=== PATIENT | female | born 1990 | race Asian ===

== ENCOUNTER 2016-10-10 16:31 | Emergency (ER) | payer MEDICAID ==
[~2016-10-10] VITALS: Ht 157.5 cm; Wt 45.8 kg
[2016-10-10 16:41] VITALS: BP_SYST 113
[2016-10-10 17:37] LABS: BILIRUBIN,URINE 2+ (NEGATIVE); BLOOD, URINE 3+ (NEGATIVE); CLARITY/URINE HAZY (CLEAR); COLOR,URINE YELLOW (YELLOW); GLUCOSE,URINE NEGATIVE (NEGATIVE); KETONES,URINE NEGATIVE (NEGATIVE); LEUKOCYTE ESTERASE ,URINE NEGATIVE (NEGATIVE); NITRITE, URINE NEGATIVE (NEGATIVE); PH,URINE 5.5 (5.0-8.0); PROTEIN URINE 3+ (NEGATIVE); UROBILINOGEN,URINE 0.2 (0.2-1.0)
[2016-10-10 17:38] LABS: HEMATOCRIT 33.9 % (36-48); MEAN CORPUSCULAR HEMOGLOBIN 27 pg (27-31); MEAN CORPUSCULAR HGB CONC 32 % (32-36); MEAN CORPUSCULAR VOLUME 83 fL (79.0-98.0); PLATELET COUNT (AUTO) 193 K/uL (130-430); RED BLOOD CELL COUNT(AUTO) 4.08 MIL/uL (4.2-6.2); RED CELL DISTRIBUTION WIDTH 14.3 % (9.0-15.0); WHITE BLOOD COUNT (AUTO) 6.2 K/uL (4.8-10.8)
[2016-10-10 17:39] LABS: BACTERIA,URINE MODERATE /HPF (None Seen); FINE GRANULAR CASTS,URINE 0-3 /LPF (None Seen); HYALINE CASTS, URINE 0-3 /LPF (None Seen); MUCUS,URINE 1+ /LPF (None Seen)
[2016-10-10 17:47] LABS: CALCIUM 8.8 mg/dL (8.4-11.0); CREATININE 1.65 mg/dL (0.55-1.30); POTASSIUM 4.1 mmol/L (3.5-5.1)
[2016-10-10 17:52] LABS: ALBUMIN 2.3 g/dL (3.4-4.8); TOTAL BILIRUBIN 0.3 mg/dL (0.0-1.0); TOTAL PROTEIN, SERUM 5.8 g/dL (6.4-8.3)
[2016-10-10] MEDS ORDERED: LEVOFLOXACIN 500 MG/D5W 100 ML IV ONE (18:00)
[2016-10-10] MEDS ORDERED: LIDOCAINE 2%, 20 ML MDV INJ ONE (18:00)
[2016-10-10 18:07] LABS: ATYPICAL LYMPHOCYTES % 10 % (0-0); BAND % (MANUAL) 20 % (0-6); BASOPHILS % (MANUAL) 0 % (0-2); EOSINOPHILS % (MANUAL) 0 % (0-7); LYMPHOCYTES % (MANUAL) 7 % (20-46); MONOCYTES % (MANUAL) 4 % (0-11)
[2016-10-10 18:31] LABS: FREE T4 (FREE THYROXINE) 0.6 ng/dL (0.6-1.6); THYROID STIMULATING HORMONE 2.67 uIu/mL (0.34-4.82)
[2016-10-10] MEDS ORDERED: CALC-226 PO (19:28)
[2016-10-10] MEDS ORDERED: ERGO500043 PO (19:34)
[2016-10-10] MEDS ORDERED: COR25 PO (19:34)
[2016-10-10] MEDS ORDERED: ALEN70TA3 PO (19:34)
[2016-10-10] MEDS ORDERED: CALC-1094 PO (19:34)
[2016-10-10] MEDS ORDERED: FERR-57 PO (19:34)
[2016-10-10] MEDS ORDERED: FOLI-43 PO (19:35)
[2016-10-10] MEDS ORDERED: MYCO500T PO (19:40)
[2016-10-10] MEDS ORDERED: PRED5TAB PO (19:40)
[2016-10-10] MEDS ORDERED: POSA100T PO (19:40)
[2016-10-10] MEDS ORDERED: PRED1TAB PO (19:40)
[2016-10-10] MEDS ORDERED: LEVO25TA7 PO (19:40)
[2016-10-10] MEDS ORDERED: PLA200 PO (19:40)
[2016-10-10] MEDS ORDERED: cefTRIAXone 1 GM IVPB PREMIX 50 ML IV SCH (21:00)
[2016-10-11] MEDS ORDERED: cefTRIAXone 1 GM VIAL IV SCH (09:00)
== END 2016-10-10 19:55 | disposition left against medical advice (07) ==
LOC: SED 16:31 → SMU 19:24 → UNDOADMIN 19:24 → SED 19:55
DX: N10 Acute pyelonephritis (principal); D72.825 Bandemia; M32.9 Systemic lupus erythematosus, unspecified; I42.9 Cardiomyopathy, unspecified; Z88.2 Allergy status to sulfonamides; Z79.899 Other long term (current) drug therapy; Z98.890 Other specified postprocedural states
CPT/HCPCS: 36415; 71010; 80053; 81000; 81025; 83605; 84439; 84443; 85007; 85027; 87040; 87086; 96365; 99285; J1956; J0696; J7050

== ENCOUNTER 2018-04-16 15:18 | Inpatient (IN) | payer MEDICAID ==
[~2018-04-16] VITALS: Ht 157.5 cm; Wt 44.9 kg
[~2018-04-16 15:18] MED LIST: ALEN70TA3 PO; CALC-1094 PO; CALC-823 PO; COR25 PO; ERGO500020 PO; FERR-57 PO; FOLI-43 PO; HYDR200T80 PO; LEVO25TA7 PO; MYCO500T PO; POSA100T PO; PRED1TAB PO; PRED5TAB PO
[2018-04-16 15:27] VITALS: BP_SYST 131
[2018-04-16] MEDS ORDERED: ALBUTEROL SULFATE 0.083% 2.5 MG/3 ML VIAL.NEB IH ONE (15:45)
[2018-04-16] MEDS ORDERED: IPRATROPIUM BROM 0.5 MG/2.5 ML VIAL.NEB (ATROVENT) IH ONE (15:45)
[2018-04-16] MEDS ORDERED: VANCOMYCIN HCL 1,000 MG in D5W 250 ML IV ONE (15:45)
[2018-04-16] MEDS ORDERED: NS 1000 ML IV.SOLN IV ONE (15:45)
[2018-04-16] MEDS ORDERED: PIPERACILLIN/TAZO 3.38 GM in D5W 50 ML IV ONE (15:45)
[2018-04-16] MEDS ORDERED: PIPERACILLIN/TAZOBACTAM 3.375 GM/VIAL (ZOSYN) IV ONE (16:26)
[2018-04-16] MEDS ORDERED: VANCOMYCIN HCL 1000 MG/VIAL IV ONE (16:27)
[2018-04-16 16:39] LABS: CALCIUM 7.4 mg/dL (8.4-11.0); CREATININE 1.94 mg/dL (0.55-1.30)
[2018-04-16 16:42] LABS: INR 0.9 (0.8-1.2); PROTHROMBIN TIME 9.4 SECS (9.5-12.5)
[2018-04-16 16:45] LABS: HEMATOCRIT 26.9 % (36-48); HEMOGLOBIN 8.4 g/dL (12.0-16.0); MEAN CORPUSCULAR HEMOGLOBIN 27 pg (27-31); MEAN CORPUSCULAR HGB CONC 31 % (32-36); MEAN CORPUSCULAR VOLUME 86 fL (79.0-98.0); PLATELET COUNT (AUTO) 198 K/uL (130-430); RED BLOOD CELL COUNT(AUTO) 3.14 MIL/uL (4.2-6.2); RED CELL DISTRIBUTION WIDTH 13.8 % (9.0-15.0); WHITE BLOOD COUNT (AUTO) 4.8 K/uL (4.8-10.8)
[2018-04-16 16:52] LABS: ALBUMIN 2.1 g/dL (3.4-4.8); TOTAL BILIRUBIN 0.2 mg/dL (0.0-1.0)
[2018-04-16 17:32] LABS: BAND % (MANUAL) 23 % (0-6); EOSINOPHILS % (MANUAL) 1 % (0-7); LYMPHOCYTES % (MANUAL) 14 % (20-46); MONOCYTES % (MANUAL) 8 % (0-11)
[2018-04-16 17:33] LABS: BASOPHILS % (MANUAL) 0 % (0-2)
[2018-04-16] MEDS ORDERED: HYDROCORTISONE SOD SUCC 100 MG/2 ML VIAL IVP ONE (18:30)
[2018-04-16 19:03] LABS: BILIRUBIN,URINE NEGATIVE (NEGATIVE); BLOOD, URINE 2+ (NEGATIVE); CLARITY/URINE CLEAR (CLEAR); COLOR,URINE YELLOW (YELLOW); GLUCOSE,URINE NEGATIVE (NEGATIVE); KETONES,URINE NEGATIVE (NEGATIVE); LEUKOCYTE ESTERASE ,URINE NEGATIVE (NEGATIVE); NITRITE, URINE NEGATIVE (NEGATIVE); PROTEIN URINE 3+ (NEGATIVE); UROBILINOGEN,URINE 0.2 (0.2-1.0)
[2018-04-16 19:07] LABS: BACTERIA,URINE FEW /HPF (None Seen); WBC,URINE 0-3 /HPF (0-3)
[2018-04-16 19:18] VITALS: BP_SYST 115
[2018-04-16 20:18] VITALS: BP_SYST 126
[2018-04-16 20:20] VITALS: BP_SYST 115
[2018-04-16] MEDS ORDERED: FAMOTIDINE 20 MG TABLET PO SCH (21:00)
[2018-04-16 21:13] VITALS: BP_SYST 126
[2018-04-16] MEDS ORDERED: PIPERACILLIN/TAZOBACTAM 2.25 GM VIAL IV ONE (22:40)
[2018-04-16] MEDS: PIPERACILLIN/TAZO 2.25G/DEX-IS 50 ML IV SCH (23:08)
[2018-04-16] MEDS: IPRATROPIUM/ALBUTEROL SULFATE 3 ML AMPUL.NEB (DUONEB) INH SCH (23:20)
[2018-04-16] MEDS: NACL 0.9% 1,000 ML IV SCH (23:56)
[2018-04-17 00:54] VITALS: BP_SYST 133
[2018-04-17] MEDS: PIPERACILLIN/TAZO 2.25G/DEX-IS 50 ML IV SCH ×3 (06:16→20:43)
[2018-04-17] MEDS: LEVOTHYROXINE SODIUM 0.025 MG TABLET PO SCH (06:16)
[2018-04-17 07:14] LABS: ALBUMIN 1.6 g/dL (3.4-4.8); CREATININE 1.53 mg/dL (0.55-1.30); POTASSIUM 4.2 mmol/L (3.5-5.1); THYROID STIMULATING HORMONE 0.78 uIu/mL (0.34-4.82); TOTAL BILIRUBIN 0.2 mg/dL (0.0-1.0)
[2018-04-17 07:21] LABS: CALCIUM 6.7 mg/dL (8.4-11.0)
[2018-04-17] MEDS: IPRATROPIUM/ALBUTEROL SULFATE 3 ML AMPUL.NEB (DUONEB) INH SCH ×2 (07:35→14:00)
[2018-04-17 08:00] VITALS: BP_SYST 128
[2018-04-17 08:13] LABS: MEAN CORPUSCULAR HEMOGLOBIN 27 pg (27-31); MEAN CORPUSCULAR HGB CONC 32 % (32-36); MEAN CORPUSCULAR VOLUME 87 fL (79.0-98.0); PLATELET COUNT (AUTO) 165 K/uL (130-430); RED BLOOD CELL COUNT(AUTO) 2.45 MIL/uL (4.2-6.2); RED CELL DISTRIBUTION WIDTH 14.9 % (9.0-15.0); WHITE BLOOD COUNT (AUTO) 3.7 K/uL (4.8-10.8)
[2018-04-17 08:17] LABS: HEMATOCRIT 21.3 % (36-48); HEMOGLOBIN 6.7 g/dL (12.0-16.0)
[2018-04-17] MEDS: NACL 0.9% 1,000 ML IV SCH (08:32)
[2018-04-17] MEDS: FAMOTIDINE 20 MG TABLET PO SCH (08:56)
[2018-04-17] MEDS: FOLIC ACID 1 MG TABLET PO SCH (08:56)
[2018-04-17] MEDS: CARVEDILOL 25 MG TABLET (COREG) PO SCH ×2 (08:59→20:51)
[2018-04-17] MEDS ORDERED: CARVEDILOL 25 MG TABLET (COREG) PO SCH (09:00)
[2018-04-17] MEDS: HYDROCORTISONE SOD SUCC 100 MG/2 ML VIAL IVP SCH ×2 (09:00→20:42)
[2018-04-17 09:44] LABS: BAND % (MANUAL) 10 % (0-6)
[2018-04-17 09:46] LABS: TOTAL IRON BIND. CAPACITY 158 ug/dL (250-450)
[2018-04-17 09:49] LABS: BASOPHILS % (MANUAL) 0 % (0-2); EOSINOPHILS % (MANUAL) 0 % (0-7); LYMPHOCYTES % (MANUAL) 6 % (20-46); MONOCYTES % (MANUAL) 4 % (0-11)
[2018-04-17 11:55] VITALS: BP_SYST 128
[2018-04-17] MEDS ORDERED: DIPHENHYDRAMINE HCL 25 MG CAPSULE PO ONE (12:45)
[2018-04-17] MEDS: ACETAMINOPHEN 325 MG TABLET PO PRN (12:47)
[2018-04-17] MEDS ORDERED: OSELTAMIVIR PHOSPHATE 6 MG/1 ML, 60 ML SUSP PO ONE (13:00)
[2018-04-17] MEDS ORDERED: AZITHROMYCIN 500 MG in NS 250 ML IV SCH (13:00)
[2018-04-17] MEDS ORDERED: VANCOMYCIN HCL 750 MG/NS 250 ML IV SCH (15:00)
[2018-04-17 16:57] VITALS: BP_SYST 130
[2018-04-17 17:43] LABS: HEMATOCRIT 25.8 % (36-48); HEMOGLOBIN 8.5 g/dL (12.0-16.0); MEAN CORPUSCULAR HEMOGLOBIN 29 pg (27-31); MEAN CORPUSCULAR HGB CONC 33 % (32-36); MEAN CORPUSCULAR VOLUME 87 fL (79.0-98.0); PLATELET COUNT (AUTO) 154 K/uL (130-430); RED BLOOD CELL COUNT(AUTO) 2.99 MIL/uL (4.2-6.2); RED CELL DISTRIBUTION WIDTH 14.6 % (9.0-15.0)
[2018-04-17 17:58] LABS: ATYPICAL LYMPHOCYTES % 0 % (0-0); BAND % (MANUAL) 16 % (0-6); BASOPHILS % (MANUAL) 0 % (0-2); EOSINOPHILS % (MANUAL) 0 % (0-7); LYMPHOCYTES % (MANUAL) 7 % (20-46); MONOCYTES % (MANUAL) 3 % (0-11)
[2018-04-17 20:35] VITALS: BP_SYST 154
[2018-04-17 23:00] VITALS: BP_SYST 143
[2018-04-18] MEDS: IPRATROPIUM/ALBUTEROL SULFATE 3 ML AMPUL.NEB (DUONEB) INH SCH ×3 (00:03→22:00)
[2018-04-18] MEDS: PIPERACILLIN/TAZO 2.25G/DEX-IS 50 ML IV SCH ×2 (02:36→08:33)
[2018-04-18] MEDS: LEVOTHYROXINE SODIUM 0.025 MG TABLET PO SCH (06:05)
[2018-04-18 07:43] LABS: ALBUMIN 1.8 g/dL (3.4-4.8); CALCIUM 7.5 mg/dL (8.4-11.0); CREATININE 1.6 mg/dL (0.55-1.30); POTASSIUM 3.7 mmol/L (3.5-5.1); TOTAL BILIRUBIN 0.2 mg/dL (0.0-1.0)
[2018-04-18 08:16] VITALS: BP_SYST 148
[2018-04-18] MEDS: OSELTAMIVIR PHOSPHATE 6 MG/1 ML, 60 ML SUSP PO SCH (08:30)
[2018-04-18] MEDS: HYDROCORTISONE SOD SUCC 100 MG/2 ML VIAL IVP SCH ×2 (08:30→21:59)
[2018-04-18] MEDS: FAMOTIDINE 20 MG TABLET PO SCH (08:31)
[2018-04-18] MEDS: FOLIC ACID 1 MG TABLET PO SCH (08:32)
[2018-04-18] MEDS: CARVEDILOL 25 MG TABLET (COREG) PO SCH ×2 (08:32→22:01)
[2018-04-18 08:36] LABS: HEMATOCRIT 29.7 % (36-48); HEMOGLOBIN 9.6 g/dL (12.0-16.0); LYMPHOCYTES % (AUTO) 13.8 % (20.5-51.5); MEAN CORPUSCULAR HEMOGLOBIN 28 pg (27-31); MEAN CORPUSCULAR HGB CONC 32 % (32-36); MEAN CORPUSCULAR VOLUME 87 fL (79.0-98.0); PLATELET COUNT (AUTO) 178 K/uL (130-430); RED BLOOD CELL COUNT(AUTO) 3.41 MIL/uL (4.2-6.2); RED CELL DISTRIBUTION WIDTH 14.6 % (9.0-15.0); WHITE BLOOD COUNT (AUTO) 4.3 K/uL (4.8-10.8)
[2018-04-18 08:37] LABS: BASOPHILS % (AUTO) 0.6 % (0.0-2.0); LYMPHOCYTES # (AUTO) 0.6 K/uL (1.0-5.5); MONOCYTES # (AUTO) 0.3 K/uL (0.0-1.0); MONOCYTES % (AUTO) 6.6 % (1.7-9.3); NEUTROPHILS # (AUTO) 3.4 K/uL (1.8-7.7)
[2018-04-18] MEDS: cefTRIAXone 1 GM in D5W 50 ML IV SCH (12:14)
[2018-04-18 12:31] VITALS: BP_SYST 134
[2018-04-18] MEDS ORDERED: ONDANSETRON HCL 4 MG/2 ML VIAL IVP PRN (14:30)
[2018-04-18] MEDS ORDERED: CARVEDILOL 12.5 MG TABLET (COREG) PO ONE (14:30)
[2018-04-18 16:00] VITALS: BP_SYST 142
[2018-04-18 20:00] VITALS: BP_SYST 144
[2018-04-18] MEDS: FERROUS SULFATE 325 MG TABLET.DR PO SCH (21:58)
[2018-04-19] MEDS ORDERED: guaiFENesin 200 MG/CODEINE 20 MG/ 10 ML UDC PO PRN (02:30)
[2018-04-19] MEDS: ACETAMINOPHEN 325 MG TABLET PO PRN (02:39)
[2018-04-19] MEDS: LEVOTHYROXINE SODIUM 0.025 MG TABLET PO SCH (06:34)
[2018-04-19] MEDS: IPRATROPIUM/ALBUTEROL SULFATE 3 ML AMPUL.NEB (DUONEB) INH SCH ×2 (07:19→15:38)
[2018-04-19 08:05] VITALS: BP_SYST 151
[2018-04-19] MEDS ORDERED: cloNIDine HCL 0.1 MG TABLET PO PRN (08:30)
[2018-04-19] MEDS: FERROUS SULFATE 325 MG TABLET.DR PO SCH (09:04)
[2018-04-19] MEDS: FOLIC ACID 1 MG TABLET PO SCH (09:04)
[2018-04-19] MEDS: FAMOTIDINE 20 MG TABLET PO SCH (09:04)
[2018-04-19] MEDS: cefTRIAXone 1 GM in D5W 50 ML IV SCH (09:04)
[2018-04-19] MEDS: HYDROCORTISONE SOD SUCC 100 MG/2 ML VIAL IVP SCH (09:04)
[2018-04-19] MEDS: OSELTAMIVIR PHOSPHATE 6 MG/1 ML, 60 ML SUSP PO SCH (09:05)
[2018-04-19] MEDS: CARVEDILOL 25 MG TABLET (COREG) PO SCH (09:05)
[2018-04-19 10:37] VITALS: BP_SYST 151
[2018-04-19 12:04] VITALS: BP_SYST 138
[2018-04-19] MEDS ORDERED: MYCOPHENOLATE MOFETIL 250 MG CAPSULE PO ONE (12:30)
[2018-04-19 16:23] VITALS: BP_SYST 136
[2018-04-19 16:37] VITALS: BP_SYST 136
[2018-04-19] MEDS ORDERED: MYCOPHENOLATE MOFETIL 250 MG CAPSULE PO SCH (21:00)
[2018-04-20 04:07] LABS: FOLATE (FOLIC ACID) 8.2 ng/mL (>3.0)
== END 2018-04-19 17:16 | disposition home or self-care (01) | DRG 720 ==
LOC: SED 15:18 → STU 18:22
PROVIDERS: ADMIT Internal Medicine; ATTEND Internal Medicine
PROC: 30233N1 Transfusion of Nonautologous Red Blood Cells into Peripheral Vein, Percutaneous Approach (ICD-10-PCS; principal; 2018-04-17)
DX: A41.9 Sepsis, unspecified organism (principal); N17.0 Acute kidney failure with tubular necrosis; E43 Unspecified severe protein-calorie malnutrition; J12.9 Viral pneumonia, unspecified; J18.9 Pneumonia, unspecified organism; I50.9 Heart failure, unspecified; M32.14 Glomerular disease in systemic lupus erythematosus; M32.9 Systemic lupus erythematosus, unspecified; M81.0 Age-related osteoporosis without current pathological fracture; N18.9 Chronic kidney disease, unspecified; D64.9 Anemia, unspecified; J20.9 Acute bronchitis, unspecified; N92.0 Excessive and frequent menstruation with regular cycle; E03.9 Hypothyroidism, unspecified; Z68.1 Body mass index [BMI] 19.9 or less, adult; Z87.01 Personal history of pneumonia (recurrent); Z88.2 Allergy status to sulfonamides
CPT/HCPCS: 36415; 71046-TC; 80048; 80053; 81000-TC; 82272; 82607; 82746; 83540-TC; 83550-TC; 83605; 83735-TC; 83880; 84443-TC; 84484; 85007; 85025; 85027; 85610-TC; 85730-TC; 86710; 86886; 86900; 86901; 86920; 87040-TC; 87070-TC; 87205-TC; 93005; 94640; 94760; 96365; 96366; 96368; 99285; G0378; G9035; J0456; J0696; J1720; J2543; J3370; J7030; J7040; J7050; J7060; J7517; J7613; J7620; P9021; Q0163

== ENCOUNTER 2020-09-19 18:01 | Emergency (ER) | payer MEDICAID ==
[~2020-09-19] VITALS: Ht 157.5 cm; Wt 39.5 kg
[~2020-09-19 18:01] MED LIST changes: -CALC-1094 PO; +CALC-1312 PO
[2020-09-19 18:05] VITALS: BP_SYST 146
[2020-09-19 18:46] LABS: HEMATOCRIT 25.9 % (36-48); HEMOGLOBIN 8.5 g/dL (12.0-16.0); MEAN CORPUSCULAR HEMOGLOBIN 31 pg (27-31); MEAN CORPUSCULAR HGB CONC 33 % (32-36); MEAN CORPUSCULAR VOLUME 93 fL (79.0-98.0); PLATELET COUNT (AUTO) 137 K/uL (130-430); RED BLOOD CELL COUNT(AUTO) 2.78 MIL/uL (4.2-6.2); RED CELL DISTRIBUTION WIDTH 18.1 % (9.0-15.0)
[2020-09-19 18:49] LABS: WHITE BLOOD COUNT (AUTO) 2.1 K/uL (4.8-10.8)
[2020-09-19 18:55] LABS: POTASSIUM 4.6 mmol/L (3.5-5.1)
[2020-09-19 18:58] LABS: INR 1.8 (0.8-1.2); PROTHROMBIN TIME 18.5 SECS (9.5-12.5)
[2020-09-19 19:01] LABS: CREATININE 15.05 mg/dL (0.55-1.30)
[2020-09-19 19:04] LABS: ALBUMIN 2.6 g/dL (3.4-4.8); TOTAL BILIRUBIN 0.4 mg/dL (0.0-1.0)
[2020-09-19 19:13] LABS: BAND % (MANUAL) 0 % (0-6); BASOPHILS % (MANUAL) 0 % (0-2); EOSINOPHILS % (MANUAL) 0 % (0-7); LYMPHOCYTES % (MANUAL) 13 % (20-46); MONOCYTES % (MANUAL) 11 % (0-11)
[2020-09-19 19:42] LABS: CKMB RELATIVE INDEX 0.4 (0.0-2.9); CREATINE KINASE MB 1.4 ng/mL (0-3.6)
[2020-09-19 21:48] LABS: BILIRUBIN,URINE NEGATIVE (NEGATIVE); BLOOD, URINE 3+ (NEGATIVE); CLARITY/URINE CLOUDY (CLEAR); COLOR,URINE RED (YELLOW); GLUCOSE,URINE NEGATIVE (NEGATIVE); KETONES,URINE NEGATIVE (NEGATIVE); LEUKOCYTE ESTERASE ,URINE NEGATIVE (NEGATIVE); NITRITE, URINE NEGATIVE (NEGATIVE); PH,URINE 7.5 (5.0-8.0); PROTEIN URINE 2+ (NEGATIVE); UROBILINOGEN,URINE 0.2 (0.2-1.0)
[2020-09-19 21:49] LABS: BACTERIA,URINE FEW /HPF (None Seen); MUCUS,URINE None Seen /LPF (None Seen); RBC,URINE >100 /HPF (0-3); WBC,URINE 0-3 /HPF (0-3)
== END 2020-09-19 23:40 | disposition left against medical advice (07) ==
LOC: SED 18:01
DX: D64.9 Anemia, unspecified (principal); R53.1 Weakness; I50.9 Heart failure, unspecified; Z88.2 Allergy status to sulfonamides; Z79.899 Other long term (current) drug therapy; Z20.822 Contact with and (suspected) exposure to COVID-19
CPT/HCPCS: 36415; 71045; 80053; 81000; 82550; 82553; 83880; 84484; 84703; 85007; 85027; 85610-TC; 93005; 99291

== ENCOUNTER 2020-11-05 17:26 | Emergency (ER) | payer MEDICAID, SELFPAY ==
[~2020-11-05] VITALS: Ht 157.5 cm; Wt 41.7 kg
[2020-11-05 17:35] VITALS: BP_SYST 138
[2020-11-05] MEDS ORDERED: SODIUM POLYSTYRENE SULFONATE 15 GM/60 ML UDBTL PO ONE (18:00)
[2020-11-05] MEDS ORDERED: DEXTROSE 50% JECT 50 ML DISP.SYRIN IVP ONE (18:00)
[2020-11-05] MEDS ORDERED: SODIUM BICARBONATE 8.4% VIAL 50 MEQ/50 ML VIAL INJ ONE (18:00)
[2020-11-05] MEDS ORDERED: INSULIN REGULAR, HUMAN 10 UNITS/0.1 ML INJ IVP ONE (18:00)
[2020-11-05 18:44] LABS: HEMATOCRIT 30.7 % (36-48); HEMOGLOBIN 9.7 g/dL (12.0-16.0); MEAN CORPUSCULAR HEMOGLOBIN 30 pg (27-31); MEAN CORPUSCULAR HGB CONC 31 % (32-36); MEAN CORPUSCULAR VOLUME 96 fL (79.0-98.0); PLATELET COUNT (AUTO) 95 K/uL (130-430); RED BLOOD CELL COUNT(AUTO) 3.19 MIL/uL (4.2-6.2); RED CELL DISTRIBUTION WIDTH 17.9 % (9.0-15.0); WHITE BLOOD COUNT (AUTO) 2.2 K/uL (4.8-10.8)
[2020-11-05 18:48] LABS: POTASSIUM 3.6 mmol/L (3.5-5.1)
[2020-11-05 18:55] LABS: CREATININE 12.33 mg/dL (0.55-1.30)
[2020-11-05 18:56] LABS: ALBUMIN 2.2 g/dL (3.4-4.8); TOTAL BILIRUBIN 0.2 mg/dL (0.0-1.0)
[2020-11-05 19:00] VITALS: BP_SYST 132
[2020-11-05 19:17] LABS: BAND % (MANUAL) 0 % (0-6); BASOPHILS % (MANUAL) 0 % (0-2); EOSINOPHILS % (MANUAL) 0 % (0-7); LYMPHOCYTES % (MANUAL) 12 % (20-46); MONOCYTES % (MANUAL) 12 % (0-11)
== END 2020-11-05 19:00 | disposition home or self-care (01) ==
LOC: SED 17:26
DX: E87.5 Hyperkalemia (principal); N18.6 End stage renal disease; Z88.2 Allergy status to sulfonamides; Z79.899 Other long term (current) drug therapy
CPT/HCPCS: 36415; 80053; 85007; 85027; 93005; 99284

== ENCOUNTER 2023-07-26 06:47 | Inpatient (IN) | payer MEDICAID ==
[~2023-07-26] VITALS: Ht 152.4 cm; Wt 48.6 kg
[~2023-07-26 06:47] MED LIST changes: -ALEN70TA3 PO; +ALEN70TA84 PO
[2023-07-26 06:58] VITALS: BP_SYST 115; PULSE 137; RESP 26; TEMP 98.9; O2SAT 96
[2023-07-26 07:42] LABS: BASOPHILS # (AUTO) 0.1 K/uL (0.0-0.2); BASOPHILS % (AUTO) 0.5 % (0.0-2.0); LYMPHOCYTES % (AUTO) 7.9 % (20.5-51.5); MEAN CORPUSCULAR HEMOGLOBIN 28 pg (27-31); MEAN CORPUSCULAR HGB CONC 35 % (32-36); MEAN CORPUSCULAR VOLUME 82 fL (79.0-98.0); MONOCYTES # (AUTO) 0.5 K/uL (0.0-1.0); NEUTROPHILS # (AUTO) 10.9 K/uL (1.8-7.7); NEUTROPHILS % (AUTO) 87.6 % (40.0-70.0); PLATELET COUNT (AUTO) 241 K/uL (130-430); RED CELL DISTRIBUTION WIDTH 18.7 % (9.0-15.0); WHITE BLOOD COUNT (AUTO) 12.4 K/uL (4.8-10.8)
[2023-07-26 07:44] LABS: ERYTHROCYTE SEDIMENTATION RATE 25 MM/HR (0-20)
[2023-07-26 07:45] LABS: HEMATOCRIT 15.6 % (36-48); HEMOGLOBIN 5.4 g/dL (12.0-16.0)
[2023-07-26 07:59] LABS: SERUM HCG (QUALITATIVE) NEGATIVE (NEGATIVE)
[2023-07-26] MEDS: fentaNYL CITRATE/PF 100 MCG/2 ML AMP IVP ONE (08:04)
[2023-07-26] MEDS: ONDANSETRON HCL 4 MG/2 ML VIAL IVP ONE (08:04)
[2023-07-26 08:08] LABS: COVID19 ANTIGEN SOFIA FIA NEGATIVE (NEGATIVE)
[2023-07-26 08:10] LABS: INFLUENZA TYPE A Negative (NEGATIVE); INFLUENZA TYPE B NEGATIVE (NEGATIVE)
[2023-07-26 08:18] LABS: ALANINE AMINOTRANSFERASE 27 U/L (12-78); ALBUMIN 1.9 g/dL (3.4-4.8); ANION GAP 17 (5-15); ASPARTATE AMINOTRANSFERASE 37 U/L (10-37); BILIRUBIN,DIRECT 0.1 mg/dL (0.0-0.3); CALCIUM 8.1 mg/dL (8.4-11.0); CARBON DIOXIDE 28 mmol/L (23-29); CHLORIDE 89 mmol/L (98-107); GFR AFRICAN AMERICAN 3 mL/min (>90); GLUCOSE 95 mg/dL (74-106); LIPASE 339 U/L (16-77); PHOSPHORUS 6.5 mg/dL (2.7-4.5); POTASSIUM 4.2 mmol/L (3.5-5.1); SODIUM SERUM 134 mmol/L (136-145); TOTAL BILIRUBIN 0.4 mg/dL (0.0-1.0); TOTAL PROTEIN, SERUM 6.6 g/dL (6.4-8.3); UREA NITROGEN, BLOOD 78 mg/dL (8-21)
[2023-07-26 08:20] LABS: GFR NON AFRICAN-AMERICAN 2 mL/min (>90)
[2023-07-26 08:21] LABS: CREATININE 19.71 mg/dL (0.55-1.30)
[2023-07-26] MEDS: VANCOMYCIN HCL 500 MG in NS 100 ML IV ONE (08:30)
[2023-07-26] MEDS: LACOSAMIDE 100 MG TABLET PO ONE (08:45)
[2023-07-26] MEDS: NACL 0.9% 1,000 ML IV ONE (08:59)
[2023-07-26] MEDS ORDERED: PIPERACILLIN/TAZOBACTAM 2.25 GM VIAL IV ONE ×3 (09:05→14:33)
[2023-07-26] MEDS: ACETAMINOPHEN 500 MG TABLET PO ONE (09:17)
[2023-07-26] MEDS: PIPERACILLIN/TAZOBACTAM 2.25 GM in NS 50 ML IV ONE (09:17)
[2023-07-26] MEDS ORDERED: ZOLPIDEM TARTRATE 5 MG TABLET PO PRN (09:45)
[2023-07-26] MEDS ORDERED: LORazepam 2 MG/ML VIAL IVP PRN (09:45)
[2023-07-26] MEDS ORDERED: DOCUSATE SODIUM 100 MG CAPSULE PO PRN (09:45)
[2023-07-26] MEDS ORDERED: POTASSIUM CHLORIDE 20 MEQ TABLET.ER PO PRN (09:45)
[2023-07-26] MEDS ORDERED: MAGNESIUM SULFATE 50 ML IV PRN (09:45)
[2023-07-26] MEDS ORDERED: MUPIROCIN 2% TOPICAL OINTMENT 22 GM NS PRN (09:45)
[2023-07-26] MEDS ORDERED: ALENDRONATE SODIUM 70 MG TABLET (FOSAMAX) PO SCH (09:45)
[2023-07-26] MEDS ORDERED: ACETAMINOPHEN 325 MG TABLET PO PRN ×3 (09:45→11:30)
[2023-07-26] MEDS ORDERED: VANCOMYCIN HCL 1000 MG/VIAL IV ONE (09:59)
[2023-07-26] MEDS: NACL 0.9% 1,000 ML IV SCH (10:00)
[2023-07-26 10:10] LABS: TOTAL IRON BIND. CAPACITY 218 ug/dL (250-450)
[2023-07-26] MEDS: MORPHINE 2 MG/ML INJ. SYRINGE IVP PRN (11:12)
[2023-07-26] MEDS ORDERED: LORazepam 2 MG/ML VIAL IM PRN (11:15)
[2023-07-26] MEDS: PIPERACILLIN/TAZOBACTAM 2.25 GM in D5W 50 ML IV SCH (14:35)
[2023-07-26] MEDS ORDERED: SEVE800T8 PO (15:09)
[2023-07-26] MEDS ORDERED: LACO100T2 PO (15:09)
[2023-07-26] MEDS ORDERED: ACETAMINOPHEN 500 MG TABLET PO PRN ×2 (16:15→16:30)
[2023-07-26] MEDS ORDERED: SEVELAMER CARBONATE 800 MG TABLET PO SCH (18:00)
[2023-07-26] MEDS: FUROSEMIDE 40 MG/4 ML VIAL IVP ONE (19:00)
[2023-07-26] MEDS ORDERED: FERROUS SULFATE 325 MG TABLET.DR PO SCH (21:00)
[2023-07-26] MEDS ORDERED: LACOSAMIDE 100 MG TABLET PO SCH (21:00)
[2023-07-26] MEDS ORDERED: CARVEDILOL 25 MG TABLET (COREG) PO SCH (21:00)
[2023-07-26] MEDS ORDERED: mycophenolate mofetiL 250 MG CAPSULE PO SCH (21:00)
[2023-07-26] MEDS: LACOSAMIDE 100 MG TABLET PO SCH (21:17)
[2023-07-27] MEDS ORDERED: MORPHINE 2 MG/ML INJ. SYRINGE ONE ×2 (03:04→08:35)
[2023-07-27] MEDS ORDERED: POSACONAZOLE 300 MG PO SCH (07:00)
[2023-07-27 07:39] LABS: BASOPHILS % (AUTO) 0.5 % (0.0-2.0); HEMATOCRIT 25.7 % (36-48); LYMPHOCYTES # (AUTO) 0.3 K/uL (1.0-5.5); LYMPHOCYTES % (AUTO) 7.9 % (20.5-51.5); MEAN CORPUSCULAR HEMOGLOBIN 30 pg (27-31); MEAN CORPUSCULAR HGB CONC 35 % (32-36); MEAN CORPUSCULAR VOLUME 87 fL (79.0-98.0); MONOCYTES # (AUTO) 0.3 K/uL (0.0-1.0); MONOCYTES % (AUTO) 8.9 % (1.7-9.3); NEUTROPHILS # (AUTO) 3.2 K/uL (1.8-7.7); NEUTROPHILS % (AUTO) 82.7 % (40.0-70.0); PLATELET COUNT (AUTO) 127 K/uL (130-430); RED BLOOD CELL COUNT(AUTO) 2.97 MIL/uL (4.2-6.2); RED CELL DISTRIBUTION WIDTH 15.9 % (9.0-15.0); WHITE BLOOD COUNT (AUTO) 3.8 K/uL (4.8-10.8)
[2023-07-27 08:01] LABS: CALCIUM 7.6 mg/dL (8.4-11.0); POTASSIUM 4.3 mmol/L (3.5-5.1)
[2023-07-27 08:02] LABS: CREATININE 17.03 mg/dL (0.55-1.30)
[2023-07-27] MEDS ORDERED: predniSONE 1 MG TABLET PO SCH (09:00)
[2023-07-27] MEDS ORDERED: CALCIUM CARBONATE/VITAMIN D3 1 TAB TABLET PO SCH (09:00)
[2023-07-27] MEDS ORDERED: HYDROXYCHLOROQUINE SULFATE 200 MG TABLET PO SCH (09:00)
[2023-07-27] MEDS ORDERED: FOLIC ACID 1 MG TABLET PO SCH (09:00)
[2023-07-27 09:27] LABS: BILIRUBIN,URINE NEGATIVE (NEGATIVE); BLOOD, URINE 3+ (NEGATIVE); CLARITY/URINE CLOUDY (CLEAR); COLOR,URINE RED (YELLOW); GLUCOSE,URINE NEGATIVE (NEGATIVE); KETONES,URINE NEGATIVE (NEGATIVE); LEUKOCYTE ESTERASE ,URINE NEGATIVE (NEGATIVE); NITRITE, URINE POSITIVE (NEGATIVE); PROTEIN URINE 3+ (NEGATIVE); UROBILINOGEN,URINE 0.2 (0.2-1.0)
[2023-07-27 09:39] LABS: BACTERIA,URINE None Seen /HPF (None Seen); RBC,URINE >100 /HPF (0-3); WBC,URINE 0-3 /HPF (0-3)
[2023-07-27] MEDS: predniSONE 5 MG TABLET PO SCH (09:47)
[2023-07-27] MEDS: LEVOTHYROXINE SODIUM 0.025 MG TABLET PO SCH (09:47)
[2023-07-27 09:51] LABS: BARBITURATE, URINE NEGATIVE (NEG <=200); BENZODIAZEPINE, URINE NEGATIVE (NEG <=150); CANNABINOID, URINE NEGATIVE (NEG <=50); COCAINE, URINE NEGATIVE (NEG <=150); METHAMPHETAMINES SCREEN,URINE NEGATIVE (NEG <=500); OPIATE, URINE POSITIVE (NEG <=100); PHENCYCLIDINE SCREEN,URINE NEGATIVE (NEG <=25); UR TRICYCLIC ANTIDEPRESSANTS NEGATIVE (NEG <=300); URINE AMPHETAMINE NEGATIVE (NEG <=500); URINE METHADONE NEGATIVE (NEG <=200); URINE OXYCODONE SCREEN NEGATIVE (NEG <=100)
[2023-07-27] MEDS ORDERED: ONDANSETRON HCL 4 MG/2 ML VIAL ONE (09:54)
[2023-07-27] MEDS: ONDANSETRON HCL 4 MG/2 ML VIAL IVP PRN (09:59)
[2023-07-27 12:32] LABS: APPEARANCE,SPUN,BODY FLUID CLEAR (CLEAR); BF APPEARANCE UNSPUN CLEAR (CLEAR); BODY FLUID COLOR COLORLESS (LT YELLOW); BODY FLUID SOURCE/ TYPE PERITONEAL; BODY FLUID TOTAL VOLUME 50 mL; SOURCE/TYPE ,BODY FLUID PERITONEAL
[2023-07-27 12:33] LABS: RBC, BODY FLUID 374 /uL
[2023-07-27 12:35] LABS: WBC, BODY FLUID 4 /uL
[2023-07-27] MEDS: MICAFUNGIN SODIUM 100 MG in NS 100 ML IV SCH (12:41)
[2023-07-27 16:35] LABS: BODY FLUID GLUCOSE 822 mg/dL; BODY FLUID TOTAL PROTEIN < 2.0 g/dL
[2023-07-27 17:29] VITALS: BP_SYST 127; PULSE 111; RESP 18; TEMP 98.2; O2SAT 98
[2023-07-27 20:00] VITALS: BP_SYST 120; PULSE 98; RESP 18; TEMP 98.8; O2SAT 96
[2023-07-28] VITALS (8 sets, daily range): BP systolic 98–132; PULSE 74–105; RESP 16–20; TEMP 98.2–99; O2SAT 95–100
[2023-07-28 06:28] LABS: POTASSIUM 4.1 mmol/L (3.5-5.1)
[2023-07-28 06:29] LABS: BASOPHILS % (AUTO) 0.4 % (0.0-2.0); HEMATOCRIT 26.7 % (36-48); HEMOGLOBIN 9.3 g/dL (12.0-16.0); LYMPHOCYTES # (AUTO) 0.4 K/uL (1.0-5.5); LYMPHOCYTES % (AUTO) 9.2 % (20.5-51.5); MEAN CORPUSCULAR HEMOGLOBIN 30 pg (27-31); MEAN CORPUSCULAR HGB CONC 35 % (32-36); MEAN CORPUSCULAR VOLUME 86 fL (79.0-98.0); MONOCYTES # (AUTO) 0.4 K/uL (0.0-1.0); MONOCYTES % (AUTO) 8.8 % (1.7-9.3); NEUTROPHILS # (AUTO) 3.3 K/uL (1.8-7.7); NEUTROPHILS % (AUTO) 81.6 % (40.0-70.0); PLATELET COUNT (AUTO) 138 K/uL (130-430)
[2023-07-28 06:32] LABS: CREATININE 16.81 mg/dL (0.55-1.30)
[2023-07-29 00:30] VITALS: BP_SYST 128; PULSE 97; RESP 16; TEMP 98.7; O2SAT 97
[2023-07-29 06:58] LABS: BASOPHILS % (AUTO) 0.3 % (0.0-2.0); HEMATOCRIT 24.5 % (36-48); HEMOGLOBIN 8.5 g/dL (12.0-16.0); LYMPHOCYTES # (AUTO) 0.2 K/uL (1.0-5.5); LYMPHOCYTES % (AUTO) 10.2 % (20.5-51.5); MEAN CORPUSCULAR HEMOGLOBIN 30 pg (27-31); MEAN CORPUSCULAR HGB CONC 35 % (32-36); MEAN CORPUSCULAR VOLUME 86 fL (79.0-98.0); MONOCYTES # (AUTO) 0.3 K/uL (0.0-1.0); MONOCYTES % (AUTO) 12.8 % (1.7-9.3); NEUTROPHILS # (AUTO) 1.7 K/uL (1.8-7.7); NEUTROPHILS % (AUTO) 76.7 % (40.0-70.0); PLATELET COUNT (AUTO) 121 K/uL (130-430); RED BLOOD CELL COUNT(AUTO) 2.84 MIL/uL (4.2-6.2); RED CELL DISTRIBUTION WIDTH 16.5 % (9.0-15.0); WHITE BLOOD COUNT (AUTO) 2.2 K/uL (4.8-10.8)
[2023-07-29 07:12] LABS: CALCIUM 8.2 mg/dL (8.4-11.0); PHOSPHORUS 8.1 mg/dL (2.7-4.5)
[2023-07-29 07:20] LABS: CREATININE 16.64 mg/dL (0.55-1.30)
[2023-07-29 07:50] VITALS: BP_SYST 114; PULSE 80; RESP 17; TEMP 97.6; O2SAT 98
[2023-07-29 08:00] VITALS: O2SAT 98
[2023-07-29 12:06] VITALS: BP_SYST 131; PULSE 84; RESP 16; TEMP 97.4; O2SAT 98
[2023-07-29 16:00] VITALS: PULSE 88; RESP 17; TEMP 97.7; O2SAT 97
[2023-07-29 20:15] VITALS: O2SAT 99
[2023-07-30 00:22] VITALS: BP_SYST 129; PULSE 88; RESP 15; TEMP 96.8; O2SAT 100
[2023-07-30 05:31] LABS: INR 1.1 (0.8-1.2); PROTHROMBIN TIME 10.9 SECS (9.5-12.5)
[2023-07-30 05:44] LABS: BASOPHILS % (AUTO) 0.8 % (0.0-2.0); EOSINOPHILS % (AUTO) 0.1 % (0.0-4.0); LYMPHOCYTES # (AUTO) 0.3 K/uL (1.0-5.5); LYMPHOCYTES % (AUTO) 12.7 % (20.5-51.5); MEAN CORPUSCULAR HEMOGLOBIN 30 pg (27-31); MEAN CORPUSCULAR HGB CONC 34 % (32-36); MEAN CORPUSCULAR VOLUME 86 fL (79.0-98.0); MONOCYTES # (AUTO) 0.2 K/uL (0.0-1.0); MONOCYTES % (AUTO) 11.2 % (1.7-9.3); NEUTROPHILS # (AUTO) 1.5 K/uL (1.8-7.7); NEUTROPHILS % (AUTO) 75.2 % (40.0-70.0); PLATELET COUNT (AUTO) 121 K/uL (130-430); RED BLOOD CELL COUNT(AUTO) 2.33 MIL/uL (4.2-6.2); RED CELL DISTRIBUTION WIDTH 16.7 % (9.0-15.0)
[2023-07-30 05:53] LABS: CALCIUM 7.7 mg/dL (8.4-11.0); POTASSIUM 3.8 mmol/L (3.5-5.1)
[2023-07-30 06:26] LABS: CREATININE 15.94 mg/dL (0.55-1.30)
[2023-07-30 08:00] VITALS: BP_SYST 121; PULSE 88; RESP 16; TEMP 98.2; O2SAT 100
[2023-07-30 08:29] LABS: HEMATOCRIT 20.1 % (36-48); HEMOGLOBIN 6.9 g/dL (12.0-16.0)
[2023-07-30] MEDS ORDERED: DEXAMETHASONE SOD PHOSPHATE 4 MG/ML VIAL ONE (10:56)
[2023-07-30] MEDS ORDERED: KETOROLAC TROMETHAMINE 30 MG VIAL IM PRN (12:00)
[2023-07-30] MEDS ORDERED: hydrALAZINE HCL 20 MG/ML VIAL IV PRN (12:00)
[2023-07-30] MEDS ORDERED: HYDROmorphone 1 MG/ML INJ. CARTRIDGE IVP PRN (12:00)
[2023-07-30] MEDS ORDERED: ONDANSETRON HCL 4 MG/2 ML VIAL IVP PRN ×2 (12:00→12:15)
[2023-07-30] MEDS ORDERED: NALOXONE HCL 0.4 MG/ML AMP (NARCAN) IVP PRN ×2 (12:00→12:15)
[2023-07-30] MEDS ORDERED: fentaNYL CITRATE/PF 100 MCG/2 ML AMP ONE (12:02)
[2023-07-30] MEDS ORDERED: OXYCODONE/ACETAMINOPHEN 5-325 TABLET PO PRN (12:15)
[2023-07-30] MEDS ORDERED: HYDROcodone/ACETAMIN 5-325 MG TAB (NORCO/ VICODIN) PO PRN (12:15)
[2023-07-30] MEDS ORDERED: HYDROmorphone 1 MG/ML INJ. CARTRIDGE ONE (12:40)
[2023-07-30] MEDS: HYDROmorphone 1 MG/ML INJ. CARTRIDGE IVP PRN (12:41)
[2023-07-30 14:00] VITALS: BP_SYST 144; PULSE 89; RESP 16; TEMP 97.9; O2SAT 99
[2023-07-30] MEDS: metroNIDAZOLE 250 mg/NS 50 ML IV SCH (15:22)
[2023-07-30 16:00] VITALS: BP_SYST 136; PULSE 87; RESP 15; TEMP 98.2; O2SAT 99
[2023-07-30] MEDS: CEFEPIME 2 GM in D5W 100 ML IV SCH (17:00)
[2023-07-30 20:15] VITALS: BP_SYST 121; PULSE 115; RESP 18; TEMP 97.5; O2SAT 95
[2023-07-30 23:06] LABS: QUANTIFERON TB GOLD Indeterminate (Negative)
[2023-07-31 00:30] VITALS: BP_SYST 116; PULSE 72; RESP 18; TEMP 97.7; O2SAT 95
[2023-07-31 01:00] VITALS: BP_SYST 122; PULSE 93; RESP 18; TEMP 97.5; O2SAT 99
[2023-07-31] MEDS: ACETAMINOPHEN 500 MG TABLET PO PRN (02:30)
[2023-07-31] MEDS: MORPHINE 2 MG/ML INJ. SYRINGE IVP PRN (05:10)
[2023-07-31 05:25] LABS: BASOPHILS % (AUTO) 0.5 % (0.0-2.0); HEMOGLOBIN 10.9 g/dL (12.0-16.0); LYMPHOCYTES # (AUTO) 0.3 K/uL (1.0-5.5); MEAN CORPUSCULAR HEMOGLOBIN 31 pg (27-31); MEAN CORPUSCULAR HGB CONC 35 % (32-36); MEAN CORPUSCULAR VOLUME 89 fL (79.0-98.0); MONOCYTES # (AUTO) 0.3 K/uL (0.0-1.0); NEUTROPHILS # (AUTO) 2.4 K/uL (1.8-7.7); NEUTROPHILS % (AUTO) 81.5 % (40.0-70.0); PLATELET COUNT (AUTO) 95 K/uL (130-430); RED BLOOD CELL COUNT(AUTO) 3.47 MIL/uL (4.2-6.2); RED CELL DISTRIBUTION WIDTH 16.4 % (9.0-15.0)
[2023-07-31 05:49] LABS: CALCIUM 7.4 mg/dL (8.4-11.0); POTASSIUM 4.7 mmol/L (3.5-5.1)
[2023-07-31 07:21] LABS: CREATININE 16.61 mg/dL (0.55-1.30)
[2023-07-31 08:00] VITALS: BP_SYST 132; PULSE 87; RESP 16; TEMP 97.5; O2SAT 96; O2SAT 98
[2023-07-31] MEDS ORDERED: METR-343 PO (09:04)
[2023-07-31] MEDS ORDERED: CIPR250T4 PO (09:04)
[2023-07-31 11:16] VITALS: BP_SYST 138; PULSE 100; RESP 18; TEMP 97.6; O2SAT 99
== END 2023-07-31 12:30 | disposition home or self-care (01) | DRG 710 ==
LOC: SED 06:47 → STU 09:24
PROVIDERS: ADMIT General Practice; ATTEND General Practice
PROC: 30233N1 Transfusion of Nonautologous Red Blood Cells into Peripheral Vein, Percutaneous Approach (ICD-10-PCS; principal; 2023-07-26)
PROC: 3E1M39Z Irrigation of Peritoneal Cavity using Dialysate, Percutaneous Approach (ICD-10-PCS; 2023-07-26)
PROC: 4A00X4Z Measurement of Central Nervous Electrical Activity, External Approach (ICD-10-PCS; 2023-07-27)
PROC: 3E1M39Z Irrigation of Peritoneal Cavity using Dialysate, Percutaneous Approach (ICD-10-PCS; 2023-07-27)
PROC: 3E1M39Z Irrigation of Peritoneal Cavity using Dialysate, Percutaneous Approach (ICD-10-PCS; 2023-07-28)
PROC: 3E1M39Z Irrigation of Peritoneal Cavity using Dialysate, Percutaneous Approach (ICD-10-PCS; 2023-07-29)
PROC: 0UDB8ZZ Extraction of Endometrium, Via Natural or Artificial Opening Endoscopic (ICD-10-PCS; 2023-07-30)
PROC: 3E1M39Z Irrigation of Peritoneal Cavity using Dialysate, Percutaneous Approach (ICD-10-PCS; 2023-07-30)
PROC: 3E1M39Z Irrigation of Peritoneal Cavity using Dialysate, Percutaneous Approach (ICD-10-PCS; 2023-07-31)
DX: A41.9 Sepsis, unspecified organism (principal); N17.0 Acute kidney failure with tubular necrosis; I21.A1 Myocardial infarction type 2; E43 Unspecified severe protein-calorie malnutrition; I42.9 Cardiomyopathy, unspecified; N18.6 End stage renal disease; G90.9 Disorder of the autonomic nervous system, unspecified; M32.9 Systemic lupus erythematosus, unspecified; M48.54XA Collapsed vertebra, not elsewhere classified, thoracic region, initial encounter for fracture; K52.9 Noninfective gastroenteritis and colitis, unspecified; Z20.822 Contact with and (suspected) exposure to COVID-19; E03.9 Hypothyroidism, unspecified; N92.0 Excessive and frequent menstruation with regular cycle; G40.909 Epilepsy, unspecified, not intractable, without status epilepticus; R16.1 Splenomegaly, not elsewhere classified; M85.80 Other specified disorders of bone density and structure, unspecified site; M87.9 Osteonecrosis, unspecified; R93.89 Abnormal findings on diagnostic imaging of other specified body structures; N89.8 Other specified noninflammatory disorders of vagina; N84.0 Polyp of corpus uteri; N89.6 Tight hymenal ring; Z88.2 Allergy status to sulfonamides; Z68.20 Body mass index [BMI] 20.0-20.9, adult; Z86.73 Personal history of transient ischemic attack (TIA), and cerebral infarction without residual deficits; Z99.2 Dependence on renal dialysis
CPT/HCPCS: 36415; 70450-TC; 71045; 76830; 76856; 80048; 80076; 80307; 81000; 81001; 81015; 82947; 83037; 83540; 83550; 83605; 83690; 83735; 83880; 84100; 84157; 84443; 84484; 84703; 85025; 85610; 85651; 85730; 86480; 86886; 86900; 86901; 86920; 87040; 87070; 87081; 87305; 87497; 87899; 88305; 89051; 89060; 90935; 90937; 93005; 95816; 99291; 99292; C1819; G0378; J0692; J1100; J1170; J2248; J2270; J2405; J2543; J2704; J3010; J3370; J3490; J7060; J7512; P9021

== ENCOUNTER 2023-10-24 02:13 | Inpatient (IN) | payer MEDICAID ==
[2023-10-24] VITALS (18 sets, daily range): BP systolic 82–135; PULSE 97–138; RESP 13–26; TEMP 98.9–101.5; O2SAT 86–100
[~2023-10-24] VITALS: Ht 154.9 cm; Wt 40.6 kg
[~2023-10-24 02:13] MED LIST changes: -ALEN70TA84 PO; -CALC-1312 PO; -CALC-823 PO; -COR25 PO; -ERGO500020 PO; -FERR-57 PO; +FERR324T11 PO; -HYDR200T80 PO; +LACO100T2 PO; -LEVO25TA7 PO; +MEDR10TA72 PO; -MYCO500T PO; -POSA100T PO; -PRED1TAB PO; +SEVE800T8 PO
[2023-10-24] MEDS ORDERED: PIPERACILLIN/TAZOBACTAM 3.375 GM/VIAL (ZOSYN) IV ONE (02:57)
[2023-10-24] MEDS: MORPHINE 4 MG INJ. 4 MG/ML VIAL IVP ONE ×2 (02:59→06:46)
[2023-10-24] MEDS: ONDANSETRON HCL 4 MG/2 ML VIAL IVP ONE (03:22)
[2023-10-24] MEDS ORDERED: NOREPINEPHRINE 4 MG/4 ML VIAL IV ONE ×3 (03:52→08:19)
[2023-10-24] MEDS: PIPERACILLIN/TAZO 3.375 GM in D5W 50 ML IV ONE (03:55)
[2023-10-24] MEDS: VANCOMYCIN HCL 1,000 MG in NS 250 ML IV ONE (03:55)
[2023-10-24] MEDS: VANCOMYCIN HCL 1000 MG/VIAL IV ONE (03:56)
[2023-10-24] MEDS: NOREPINEPHRINE BITARTRATE 4 MG in D5W 246 ML IV ONE (04:00)
[2023-10-24 04:15] LABS: BASOPHILS % (AUTO) 0.9 % (0.0-2.0); HEMATOCRIT 23.7 % (36-48); HEMOGLOBIN 7.9 g/dL (12.0-16.0); LYMPHOCYTES # (AUTO) 0.2 K/uL (1.0-5.5); LYMPHOCYTES % (AUTO) 12.4 % (20.5-51.5); MEAN CORPUSCULAR HEMOGLOBIN 29 pg (27-31); MEAN CORPUSCULAR HGB CONC 33 % (32-36); MEAN CORPUSCULAR VOLUME 87 fL (79.0-98.0); MONOCYTES # (AUTO) 0.1 K/uL (0.0-1.0); MONOCYTES % (AUTO) 6.6 % (1.7-9.3); NEUTROPHILS # (AUTO) 1.5 K/uL (1.8-7.7); NEUTROPHILS % (AUTO) 80.1 % (40.0-70.0); PLATELET COUNT (AUTO) 193 K/uL (130-430); RED BLOOD CELL COUNT(AUTO) 2.71 MIL/uL (4.2-6.2); RED CELL DISTRIBUTION WIDTH 16.8 % (9.0-15.0)
[2023-10-24 04:28] LABS: WHITE BLOOD COUNT (AUTO) 1.9 K/uL (4.8-10.8)
[2023-10-24 04:37] LABS: ALBUMIN 1.8 g/dL (3.4-4.8); BILIRUBIN,DIRECT 0.2 mg/dL (0.0-0.3); CALCIUM 7.7 mg/dL (8.4-11.0); POTASSIUM 3.4 mmol/L (3.5-5.1); TOTAL BILIRUBIN 0.4 mg/dL (0.0-1.0); TOTAL PROTEIN, SERUM 6.1 g/dL (6.4-8.3)
[2023-10-24 04:50] LABS: CREATININE 15.73 mg/dL (0.55-1.30)
[2023-10-24 05:11] LABS: SOURCE/TYPE ,BODY FLUID PERITONEAL
[2023-10-24 05:12] LABS: BF APPEARANCE UNSPUN CLOUDY (CLEAR); BODY FLUID SOURCE/ TYPE PERITONEAL
[2023-10-24 05:13] LABS: APPEARANCE,SPUN,BODY FLUID CLEAR (CLEAR); BODY FLUID COLOR LT YELLOW (LT YELLOW)
[2023-10-24 05:15] LABS: BODY FLUID TOTAL VOLUME 11 mL
[2023-10-24 06:03] LABS: LYMPHOCYTES, BODY FLUID 10 %; MONOCYTES,BODY FLUID 19 %; NEUTROPHIL, BODY FLUID 71 %; RBC, BODY FLUID 2096 /uL; WBC, BODY FLUID 353 /uL
[2023-10-24] MEDS: NACL 0.9% 500 ML IV ONE (06:39)
[2023-10-24] MEDS ORDERED: MORPHINE 2 MG/ML INJ. SYRINGE ONE ×2 (06:46→08:39)
[2023-10-24] MEDS: MORPHINE 4 MG INJ. 4 MG/ML VIAL IVP PRN (08:39)
[2023-10-24] MEDS: NOREPINEPHRINE BITARTRATE 8 MG in NS 242 ML IV PRN (08:54)
[2023-10-24] MEDS ORDERED: metroNIDAZOLE 500 mg/NS 100 ML IV SCH (10:00)
[2023-10-24] MEDS ORDERED: VANCOMYCIN HCL 1,000 MG in NS 250 ML IV SCH (10:00)
[2023-10-24] MEDS ORDERED: PIPERACILLIN/TAZO 3.375 GM in D5W 50 ML IV SCH (10:00)
[2023-10-24] MEDS: CEFEPIME 1 GM in D5W 50 ML IV SCH (10:17)
[2023-10-24] MEDS: VANCOMYCIN HCL 750 MG in NS 250 ML IV ONE (10:17)
[2023-10-24] MEDS: LEVOTHYROXINE SODIUM 0.025 MG TABLET PO ONE (10:18)
[2023-10-24] MEDS: NS 500 ML IV ONE ×2 (13:09→18:33)
[2023-10-24] MEDS: ONDANSETRON HCL 4 MG/2 ML VIAL IVP PRN (16:28)
[2023-10-24] MEDS: ACETAMINOPHEN 325 MG TABLET PO PRN ×2 (16:40→22:07)
[2023-10-24] MEDS: ALBUMIN HUMAN 25% 100 ML IV ONE (18:32)
[2023-10-24] MEDS ORDERED: VASOPRESSIN 40 UNITS in NS 38 ML IV PRN (18:45)
[2023-10-24] MEDS: VASOPRESSIN 40 UNITS in NS 38 ML IV PRN (19:01)
[2023-10-24] MEDS ORDERED: ZOLPIDEM TARTRATE 5 MG TABLET PO PRN (19:30)
[2023-10-24] MEDS: NOREPINEPHRINE BITARTRATE 32 MG in NS 218 ML IV PRN (21:10)
[2023-10-24] MEDS: LACOSAMIDE 100 MG TABLET PO SCH (21:11)
[2023-10-25] VITALS (28 sets, daily range): BP systolic 90–134; PULSE 95–142; RESP 11–38; TEMP 98.5–99.5; O2SAT 70–100
[2023-10-25 06:30] LABS: INR 1.1 (0.8-1.2); PROTHROMBIN TIME 11.6 SECS (9.5-12.5)
[2023-10-25] MEDS: LEVOTHYROXINE SODIUM 0.025 MG TABLET PO SCH (06:42)
[2023-10-25 07:25] LABS: ALBUMIN 2.1 g/dL (3.4-4.8); CALCIUM 7.2 mg/dL (8.4-11.0); POTASSIUM 4.6 mmol/L (3.5-5.1); TOTAL BILIRUBIN 0.6 mg/dL (0.0-1.0); TOTAL PROTEIN, SERUM 5.4 g/dL (6.4-8.3)
[2023-10-25 07:49] LABS: MEAN CORPUSCULAR HEMOGLOBIN 29 pg (27-31); MEAN CORPUSCULAR HGB CONC 32 % (32-36); MEAN CORPUSCULAR VOLUME 90 fL (79.0-98.0); PLATELET COUNT (AUTO) 187 K/uL (130-430); RED BLOOD CELL COUNT(AUTO) 2.16 MIL/uL (4.2-6.2); RED CELL DISTRIBUTION WIDTH 16.9 % (9.0-15.0); WHITE BLOOD COUNT (AUTO) 19.1 K/uL (4.8-10.8)
[2023-10-25 08:21] LABS: ERYTHROCYTE SEDIMENTATION RATE 25 MM/HR (0-20)
[2023-10-25 08:23] LABS: HEMATOCRIT 19.4 % (36-48); HEMOGLOBIN 6.3 g/dL (12.0-16.0)
[2023-10-25 08:33] LABS: CREATININE 15.35 mg/dL (0.55-1.30)
[2023-10-25] MEDS ORDERED: PROCHLORPERAZINE EDISYLATE 10 MG/2 ML VIAL IM PRN (09:30)
[2023-10-25] MEDS ORDERED: fentaNYL CITRATE/PF 100 MCG/2 ML AMP ONE (10:41)
[2023-10-25] MEDS ORDERED: BENZOCAINE 20% 0.5mL UD SPRAY MM ONE (10:41)
[2023-10-25] MEDS ORDERED: SIMETHICONE 40 MG/0.6 ML ML ONE (10:41)
[2023-10-25] MEDS ORDERED: MIDAZOLAM HCL 5 MG/5 ML VIAL ONE (10:42)
[2023-10-25 10:46] LABS: BAND % (MANUAL) 23 % (0-6); BASOPHILS % (MANUAL) 0 % (0-2); EOSINOPHILS % (MANUAL) 0 % (0-7); LYMPHOCYTES % (MANUAL) 2 % (20-46); MONOCYTES % (MANUAL) 2 % (0-11); PLATELET ESTIMATE ADEQUATE (ADEQUATE)
[2023-10-25] MEDS: PROCHLORPERAZINE EDISYLATE 10 MG/2 ML VIAL IVP PRN (13:43)
[2023-10-25] MEDS: MEROPENEM 500 MG in NS 50 ML IV ONE (13:50)
[2023-10-25] MEDS: metroNIDAZOLE 250 mg/NS 50 ML IV SCH (15:04)
[2023-10-25] MEDS: predniSONE 5 MG TABLET PO ONE (15:15)
[2023-10-25] MEDS: GOLYTELY / COLYTE SOLUTION 4 LITERS PO ONE (18:40)
[2023-10-25] MEDS: PANTOPRAZOLE SODIUM 40 MG/VIAL (PROTONIX) IVP SCH (20:10)
[2023-10-25] MEDS: MEROPENEM 500 MG in NS 50 ML IV SCH (20:11)
[2023-10-25] MEDS: LORazepam 2 MG/ML VIAL IVP PRN (22:54)
[2023-10-25 22:58] LABS: HEMATOCRIT 31.7 % (36-48)
[2023-10-26] VITALS (24 sets, daily range): BP systolic 82–122; PULSE 94–133; RESP 11–47; TEMP 98.3–99.3; O2SAT 91–100
[2023-10-26 05:25] LABS: BASOPHILS % (AUTO) 0.9 % (0.0-2.0); HEMATOCRIT 29.3 % (36-48); LYMPHOCYTES # (AUTO) 0.3 K/uL (1.0-5.5); LYMPHOCYTES % (AUTO) 4.9 % (20.5-51.5); MEAN CORPUSCULAR HEMOGLOBIN 31 pg (27-31); MEAN CORPUSCULAR HGB CONC 34 % (32-36); MEAN CORPUSCULAR VOLUME 90 fL (79.0-98.0); MONOCYTES # (AUTO) 0.5 K/uL (0.0-1.0); MONOCYTES % (AUTO) 8.4 % (1.7-9.3); NEUTROPHILS # (AUTO) 4.6 K/uL (1.8-7.7); NEUTROPHILS % (AUTO) 85.8 % (40.0-70.0); PLATELET COUNT (AUTO) 109 K/uL (130-430); RED BLOOD CELL COUNT(AUTO) 3.25 MIL/uL (4.2-6.2); RED CELL DISTRIBUTION WIDTH 15.7 % (9.0-15.0); WHITE BLOOD COUNT (AUTO) 5.4 K/uL (4.8-10.8)
[2023-10-26 06:00] LABS: INR 1.3 (0.8-1.2); PROTHROMBIN TIME 13.4 SECS (9.5-12.5)
[2023-10-26 06:29] LABS: ALBUMIN 1.7 g/dL (3.4-4.8); CALCIUM 7.9 mg/dL (8.4-11.0); TOTAL BILIRUBIN 0.5 mg/dL (0.0-1.0); TOTAL PROTEIN, SERUM 5.1 g/dL (6.4-8.3)
[2023-10-26 07:05] LABS: CREATININE 12.71 mg/dL (0.55-1.30)
[2023-10-26] MEDS ORDERED: predniSONE 5 MG TABLET PO SCH (09:00)
[2023-10-26] MEDS: predniSONE 5 MG TABLET PO SCH (10:01)
[2023-10-26] MEDS ORDERED: MIDAZOLAM HCL 5 MG/5 ML VIAL ONE (13:23)
[2023-10-26] MEDS ORDERED: fentaNYL CITRATE/PF 100 MCG/2 ML AMP ONE (13:23)
[2023-10-26] MEDS ORDERED: NS IP SCH (20:00)
[2023-10-26] MEDS ORDERED: GENTAMICIN SULFATE IP SCH (20:00)
[2023-10-27] VITALS (13 sets, daily range): BP systolic 89–121; PULSE 102–124; RESP 15–24; TEMP 98.1–99; O2SAT 91–100
[2023-10-27 06:58] LABS: ALBUMIN 1.4 g/dL (3.4-4.8); CALCIUM 7.1 mg/dL (8.4-11.0); POTASSIUM 3.4 mmol/L (3.5-5.1); TOTAL BILIRUBIN 0.4 mg/dL (0.0-1.0); TOTAL PROTEIN, SERUM 4.7 g/dL (6.4-8.3)
[2023-10-27 07:21] LABS: BASOPHILS % (AUTO) 0.4 % (0.0-2.0); EOSINOPHILS % (AUTO) 0.1 % (0.0-4.0); HEMATOCRIT 23.4 % (36-48); LYMPHOCYTES # (AUTO) 0.1 K/uL (1.0-5.5); LYMPHOCYTES % (AUTO) 4.2 % (20.5-51.5); MEAN CORPUSCULAR HEMOGLOBIN 31 pg (27-31); MEAN CORPUSCULAR HGB CONC 34 % (32-36); MEAN CORPUSCULAR VOLUME 91 fL (79.0-98.0); MONOCYTES # (AUTO) 0.3 K/uL (0.0-1.0); MONOCYTES % (AUTO) 8.7 % (1.7-9.3); NEUTROPHILS # (AUTO) 3.1 K/uL (1.8-7.7); NEUTROPHILS % (AUTO) 86.6 % (40.0-70.0); RED BLOOD CELL COUNT(AUTO) 2.59 MIL/uL (4.2-6.2); RED CELL DISTRIBUTION WIDTH 16.1 % (9.0-15.0)
[2023-10-27 07:23] LABS: CREATININE 11.59 mg/dL (0.55-1.30)
[2023-10-27 08:13] LABS: WHITE BLOOD COUNT (AUTO) 3.6 K/uL (4.8-10.8)
[2023-10-27 12:54] LABS: PLATELET COUNT (AUTO) 95 K/uL (130-430)
[2023-10-27] MEDS: EPOETIN ALFA-EPBX 4,000 UNITS/ML VIAL SUBCUT SCH (13:40)
[2023-10-27] MEDS: CEFEPIME 1 GM in D5W 50 ML IV SCH (13:41)
[2023-10-27 15:25] LABS: BODY FLUID GLUCOSE 465 mg/dL; BODY FLUID TOTAL PROTEIN 0.1 g/dL
[2023-10-27] MEDS: LORATADINE 10 MG TABLET PO ONE (15:45)
[2023-10-27] MEDS: D5/0.45 NS 1,000 ML IV SCH (15:46)
[2023-10-27] MEDS: GENTAMICIN SULFATE 80 MG/ 2ML VIAL IP SCH (18:00)
[2023-10-28] VITALS: BP_SYST 120; PULSE 108; RESP 18; TEMP 98.2; O2SAT 97
[2023-10-28 06:06] LABS: BASOPHILS % (AUTO) 0.5 % (0.0-2.0); EOSINOPHILS % (AUTO) 0.1 % (0.0-4.0); HEMOGLOBIN 7.2 g/dL (12.0-16.0); LYMPHOCYTES # (AUTO) 0.1 K/uL (1.0-5.5); LYMPHOCYTES % (AUTO) 7.9 % (20.5-51.5); MEAN CORPUSCULAR HEMOGLOBIN 31 pg (27-31); MEAN CORPUSCULAR HGB CONC 34 % (32-36); MEAN CORPUSCULAR VOLUME 90 fL (79.0-98.0); MONOCYTES # (AUTO) 0.2 K/uL (0.0-1.0); MONOCYTES % (AUTO) 13.5 % (1.7-9.3); NEUTROPHILS # (AUTO) 1.2 K/uL (1.8-7.7); PLATELET COUNT (AUTO) 77 K/uL (130-430); RED BLOOD CELL COUNT(AUTO) 2.36 MIL/uL (4.2-6.2); RED CELL DISTRIBUTION WIDTH 15.9 % (9.0-15.0)
[2023-10-28 06:55] LABS: CALCIUM 7.1 mg/dL (8.4-11.0)
[2023-10-28 07:30] VITALS: BP_SYST 115; PULSE 89; RESP 16; TEMP 98.4; O2SAT 99
[2023-10-28 07:46] LABS: CREATININE 9.86 mg/dL (0.55-1.30); POTASSIUM 2.9 mmol/L (3.5-5.1)
[2023-10-28] MEDS: MORPHINE 2 MG/ML INJ. SYRINGE IVP PRN (08:49)
[2023-10-28] MEDS: POTASSIUM CHLORIDE 20 MEQ/PKT PACKET PO SCH (08:53)
[2023-10-28] MEDS ORDERED: POTASSIUM CHLORIDE 20 MEQ/PKT PACKET PO ONE (09:15)
[2023-10-28 09:21] LABS: HEMATOCRIT 21.3 % (36-48)
[2023-10-28 09:22] LABS: WHITE BLOOD COUNT (AUTO) 1.6 K/uL (4.8-10.8)
[2023-10-28] MEDS ORDERED: CIPR250T4 PO (09:26)
[2023-10-28] MEDS ORDERED: PRO40 PO (09:26)
[2023-10-28] MEDS ORDERED: [UNRECOGNIZED DRUG - CODE] IM/IV (09:26)
[2023-10-28 11:07] VITALS: BP_SYST 96; PULSE 96; RESP 16; TEMP 98.1; O2SAT 99
[2023-10-28 14:04] VITALS: BP_SYST 126; PULSE 88; RESP 17; TEMP 97.7; O2SAT 95
[2023-10-28 16:10] VITALS: BP_SYST 109; PULSE 93; RESP 15; TEMP 98.7; O2SAT 99
[2023-10-28] MEDS ORDERED: HYDR-3917 PO (17:54)
== END 2023-10-28 20:02 | disposition home or self-care (01) | DRG 720 ==
LOC: SED 02:13 → SIC 06:24 → MERGE 06:24 → SIC 09:33 → STU 10-27 18:20
PROVIDERS: ADMIT Internal Medicine; ATTEND Internal Medicine
PROC: 30233N1 Transfusion of Nonautologous Red Blood Cells into Peripheral Vein, Percutaneous Approach (ICD-10-PCS; principal; 2023-10-25)
PROC: 3E1M39Z Irrigation of Peritoneal Cavity using Dialysate, Percutaneous Approach (ICD-10-PCS; 2023-10-25)
PROC: 3E1M39Z Irrigation of Peritoneal Cavity using Dialysate, Percutaneous Approach (ICD-10-PCS; 2023-10-26)
PROC: 0W3P7ZZ Control Bleeding in Gastrointestinal Tract, Via Natural or Artificial Opening (ICD-10-PCS; 2023-10-26)
PROC: 0DB68ZX Excision of Stomach, Via Natural or Artificial Opening Endoscopic, Diagnostic (ICD-10-PCS; 2023-10-26 11:00)
PROC: 3E1M39Z Irrigation of Peritoneal Cavity using Dialysate, Percutaneous Approach (ICD-10-PCS; 2023-10-27)
DX: A41.50 Gram-negative sepsis, unspecified (principal); R65.21 Severe sepsis with septic shock; D61.818 Other pancytopenia; K22.6 Gastro-esophageal laceration-hemorrhage syndrome; K29.71 Gastritis, unspecified, with bleeding; K65.9 Peritonitis, unspecified; N18.6 End stage renal disease; M32.9 Systemic lupus erythematosus, unspecified; D62 Acute posthemorrhagic anemia; E87.6 Hypokalemia; G40.89 Other seizures; K80.20 Calculus of gallbladder without cholecystitis without obstruction; K52.9 Noninfective gastroenteritis and colitis, unspecified; E03.9 Hypothyroidism, unspecified; N83.202 Unspecified ovarian cyst, left side; N93.9 Abnormal uterine and vaginal bleeding, unspecified; Z79.899 Other long term (current) drug therapy; Z88.8 Allergy status to other drugs, medicaments and biological substances
CPT/HCPCS: 36415; 43239; 43255; 71045; 80048; 80053; 80076; 80202; 82947; 83605; 84157; 85007; 85018; 85025; 85027; 85610; 85651; 86886; 86900; 86901; 86920; 87040; 87070; 87186; 88305; 88312; 88313; 89051; 89060; 93005; 93306; 96365; 99291; C1751; G0378; J0692; J0780; J1580; J2060; J2185; J2250; J2270; J2405; J2470; J2543; J3010; J3370; J3490; J7040; J7050; J7060; J7512; P9021; Q5106

== ENCOUNTER 2023-11-08 04:51 | Inpatient (IN) | payer MEDICAID ==
[~2023-11-08] VITALS: Ht 154.9 cm; Wt 34.9 kg
[~2023-11-08 04:51] MED LIST changes: +CIPR250T4 PO; +HYDR-3917 PO; +PRO40 PO; +[UNRECOGNIZED DRUG - CODE] IM/IV
[2023-11-08 04:55] VITALS: BP_SYST 93; PULSE 144; RESP 22; TEMP 98.5; O2SAT 99
[2023-11-08] MEDS: NS 500 ML IV ONE (05:51)
[2023-11-08] MEDS: PIPERACILLIN/TAZO 3.375 GM in D5W 50 ML IV SCH (05:51)
[2023-11-08] MEDS ORDERED: PIPERACILLIN/TAZOBACTAM 3.375 GM/VIAL (ZOSYN) IV ONE (05:51)
[2023-11-08 06:05] LABS: BASOPHILS % (AUTO) 0.8 % (0.0-2.0); HEMATOCRIT 26.6 % (36-48); HEMOGLOBIN 8.9 g/dL (12.0-16.0); LYMPHOCYTES # (AUTO) 0.4 K/uL (1.0-5.5); LYMPHOCYTES % (AUTO) 14.8 % (20.5-51.5); MEAN CORPUSCULAR HEMOGLOBIN 30 pg (27-31); MEAN CORPUSCULAR HGB CONC 33 % (32-36); MEAN CORPUSCULAR VOLUME 90 fL (79.0-98.0); MONOCYTES # (AUTO) 0.3 K/uL (0.0-1.0); MONOCYTES % (AUTO) 11.5 % (1.7-9.3); NEUTROPHILS # (AUTO) 1.9 K/uL (1.8-7.7); NEUTROPHILS % (AUTO) 72.9 % (40.0-70.0); PLATELET COUNT (AUTO) 127 K/uL (130-430); RED BLOOD CELL COUNT(AUTO) 2.98 MIL/uL (4.2-6.2); RED CELL DISTRIBUTION WIDTH 15.5 % (9.0-15.0); WHITE BLOOD COUNT (AUTO) 2.5 K/uL (4.8-10.8)
[2023-11-08 06:21] LABS: ALANINE AMINOTRANSFERASE 19 U/L (12-78); ALBUMIN 1.8 g/dL (3.4-4.8); ANION GAP 14 (5-15); ASPARTATE AMINOTRANSFERASE 45 U/L (10-37); BILIRUBIN,DIRECT 0.1 mg/dL (0.0-0.3); CALCIUM 7.7 mg/dL (8.4-11.0); CARBON DIOXIDE 26 mmol/L (23-29); CHLORIDE 93 mmol/L (98-107); GFR AFRICAN AMERICAN 4 mL/min (>90); GLUCOSE 112 mg/dL (74-106); POTASSIUM 3.2 mmol/L (3.5-5.1); SODIUM SERUM 133 mmol/L (136-145); TOTAL BILIRUBIN 0.4 mg/dL (0.0-1.0); TOTAL PROTEIN, SERUM 5.9 g/dL (6.4-8.3); UREA NITROGEN, BLOOD 29 mg/dL (8-21)
[2023-11-08 06:22] LABS: GFR NON AFRICAN-AMERICAN 3 mL/min (>90)
[2023-11-08 06:24] LABS: CREATININE 13.93 mg/dL (0.55-1.30)
[2023-11-08 06:26] LABS: COVID19 ANTIGEN SOFIA FIA NEGATIVE (NEGATIVE)
[2023-11-08 06:31] LABS: INFLUENZA TYPE A Negative (NEGATIVE)
[2023-11-08 06:40] LABS: INFLUENZA TYPE B POSITIVE (NEGATIVE)
[2023-11-08] MEDS ORDERED: CIPR250T4 PO (07:37)
[2023-11-08] MEDS ORDERED: HYDR-3917 PO (07:37)
[2023-11-08] MEDS ORDERED: PANT40TA45 PO (07:37)
[2023-11-08] MEDS ORDERED: POTA-178 (07:37)
[2023-11-08] MEDS ORDERED: ALBUTEROL SULFATE 0.083% 2.5 MG/3 ML VIAL.NEB INH PRN (07:45)
[2023-11-08] MEDS ORDERED: IPRATROPIUM BROM 0.5 MG/2.5 ML VIAL.NEB (ATROVENT) INH PRN (07:45)
[2023-11-08] MEDS ORDERED: ACETAMINOPHEN 325 MG TABLET PO PRN ×2 (07:45→12:00)
[2023-11-08] MEDS: NACL 0.9% 1,000 ML IV ONE (07:48)
[2023-11-08 08:07] VITALS: BP_SYST 83; PULSE 119; O2SAT 97
[2023-11-08] MEDS: MIDODRINE HCL 5 MG TABLET (PROAMATINE) PO SCH (09:00)
[2023-11-08] MEDS ORDERED: HYDROcodone/ACETAMIN 5-325 MG TAB (NORCO/ VICODIN) PO PRN (10:00)
[2023-11-08] MEDS ORDERED: NALOXONE HCL 0.4 MG/ML AMP (NARCAN) IVP PRN (10:00)
[2023-11-08] MEDS ORDERED: ONDANSETRON 4 MG ODT TAB PO PRN (10:30)
[2023-11-08] MEDS ORDERED: LORazepam 2 MG/ML VIAL IV PRN ×2 (10:45→11:00)
[2023-11-08] MEDS ORDERED: LORazepam 2 MG/ML VIAL IVP PRN (11:00)
[2023-11-08] MEDS ORDERED: FERROUS FUMARATE PO SCH (12:00)
[2023-11-08] MEDS ORDERED: predniSONE 5 MG TABLET PO ONE (12:00)
[2023-11-08] MEDS: SEVELAMER CARBONATE 800 MG TABLET PO SCH (12:00)
[2023-11-08 12:04] VITALS: BP_SYST 95; PULSE 117; RESP 20; TEMP 98.4; O2SAT 98
[2023-11-08 13:40] VITALS: BP_SYST 93; PULSE 104; RESP 16; TEMP 98.3; O2SAT 100
[2023-11-08] MEDS: HYDROcodone/ACETAMIN 5-325 MG TAB (NORCO/ VICODIN) PO PRN (14:17)
[2023-11-08] MEDS: FOLIC ACID 1 MG TABLET PO ONE (15:51)
[2023-11-08] MEDS: predniSONE 5 MG TABLET PO ONE (15:51)
[2023-11-08] MEDS: LACOSAMIDE 100 MG TABLET PO ONE (15:51)
[2023-11-08] MEDS: MAGNESIUM SULFATE/D5W 100 ML IV ONE (18:14)
[2023-11-08 18:20] VITALS: BP_SYST 90; PULSE 92; RESP 16; TEMP 98.9; O2SAT 97
[2023-11-08] MEDS: OSELTAMIVIR PHOSPHATE 6 MG/1 ML, 60 ML SUSP PO ONE (18:59)
[2023-11-08 20:00] VITALS: BP_SYST 99; PULSE 20; RESP 20; TEMP 97.3; O2SAT 98
[2023-11-08] MEDS: LACOSAMIDE 100 MG TABLET PO SCH (20:59)
[2023-11-08] MEDS ORDERED: traZODone HCL 50 MG TABLET (DESYREL) PO PRN (22:00)
[2023-11-08] MEDS: OSELTAMIVIR PHOSPHATE 30 MG CAPSULE PO SCH (22:30)
[2023-11-09] VITALS (7 sets, daily range): BP systolic 95–115; PULSE 78–97; RESP 16–20; TEMP 97.2–98; O2SAT 96–100
[2023-11-09] MEDS: MORPHINE 2 MG/ML INJ. SYRINGE IVP PRN (05:16)
[2023-11-09] MEDS: LEVOTHYROXINE SODIUM 0.025 MG TABLET PO SCH (06:57)
[2023-11-09 07:53] LABS: HEMOGLOBIN 7.2 g/dL (12.0-16.0); MEAN CORPUSCULAR HEMOGLOBIN 30 pg (27-31); MEAN CORPUSCULAR HGB CONC 33 % (32-36); MEAN CORPUSCULAR VOLUME 90 fL (79.0-98.0); PLATELET COUNT (AUTO) 127 K/uL (130-430); RED BLOOD CELL COUNT(AUTO) 2.42 MIL/uL (4.2-6.2); RED CELL DISTRIBUTION WIDTH 15.4 % (9.0-15.0)
[2023-11-09 08:02] LABS: ALBUMIN 1.5 g/dL (3.4-4.8); CALCIUM 7.3 mg/dL (8.4-11.0); POTASSIUM 3.3 mmol/L (3.5-5.1); TOTAL BILIRUBIN 0.3 mg/dL (0.0-1.0); TOTAL PROTEIN, SERUM 5.2 g/dL (6.4-8.3)
[2023-11-09 08:25] LABS: CREATININE 11.59 mg/dL (0.55-1.30)
[2023-11-09] MEDS ORDERED: OSELTAMIVIR PHOSPHATE 6 MG/1 ML, 60 ML SUSP PO SCH (09:00)
[2023-11-09] MEDS: PANTOPRAZOLE SODIUM 40 MG TAB PO SCH (09:13)
[2023-11-09] MEDS: predniSONE 5 MG TABLET PO SCH (09:14)
[2023-11-09] MEDS: FOLIC ACID 1 MG TABLET PO SCH (09:14)
[2023-11-09 09:23] LABS: HEMATOCRIT 21.6 % (36-48); WHITE BLOOD COUNT (AUTO) 1.5 K/uL (4.8-10.8)
[2023-11-09] MEDS: ONDANSETRON HCL 4 MG/2 ML VIAL IVP PRN (10:39)
[2023-11-09 11:31] LABS: BAND % (MANUAL) 3 % (0-6); LYMPHOCYTES % (MANUAL) 11 % (20-46)
[2023-11-09 11:32] LABS: ANISOCYTOSIS 1+; ATYPICAL LYMPHOCYTES % 2 % (0-0); BASOPHILS % (MANUAL) 0 % (0-2); EOSINOPHILS % (MANUAL) 0 % (0-7); MONOCYTES % (MANUAL) 14 % (0-11); PLATELET ESTIMATE DECREASED (ADEQUATE)
[2023-11-09] MEDS: POTASSIUM CHLORIDE 20 MEQ TABLET.ER PO ONE (16:14)
[2023-11-09] MEDS: SOD FERRIC GLUC COMPLEX/SUC 125 MG in NS 100 ML IV SCH (19:03)
[2023-11-10] VITALS (7 sets, daily range): BP systolic 95–112; PULSE 88–99; RESP 16–20; TEMP 98–98.3; O2SAT 98–100
[2023-11-10 06:43] LABS: BASOPHILS % (AUTO) 0.7 % (0.0-2.0); HEMOGLOBIN 7.1 g/dL (12.0-16.0); LYMPHOCYTES # (AUTO) 0.2 K/uL (1.0-5.5); LYMPHOCYTES % (AUTO) 8.5 % (20.5-51.5); MEAN CORPUSCULAR HEMOGLOBIN 30 pg (27-31); MEAN CORPUSCULAR HGB CONC 33 % (32-36); MEAN CORPUSCULAR VOLUME 89 fL (79.0-98.0); MONOCYTES # (AUTO) 0.3 K/uL (0.0-1.0); MONOCYTES % (AUTO) 11.5 % (1.7-9.3); NEUTROPHILS # (AUTO) 1.8 K/uL (1.8-7.7); NEUTROPHILS % (AUTO) 79.3 % (40.0-70.0); PLATELET COUNT (AUTO) 116 K/uL (130-430); RED CELL DISTRIBUTION WIDTH 15.2 % (9.0-15.0); WHITE BLOOD COUNT (AUTO) 2.3 K/uL (4.8-10.8)
[2023-11-10 06:48] LABS: PROTHROMBIN TIME 10.5 SECS (9.5-12.5)
[2023-11-10 07:12] LABS: ALBUMIN 1.5 g/dL (3.4-4.8); CALCIUM 7.5 mg/dL (8.4-11.0); POTASSIUM 3.3 mmol/L (3.5-5.1); TOTAL BILIRUBIN 0.3 mg/dL (0.0-1.0)
[2023-11-10 07:30] LABS: CREATININE 10.85 mg/dL (0.55-1.30)
[2023-11-10 08:34] LABS: HEMATOCRIT 21.4 % (36-48)
[2023-11-10] MEDS: LACOSAMIDE 100 MG TABLET PO SCH (10:06)
[2023-11-10] MEDS: cefTRIAXone 1 GM in D5W 50 ML IV SCH (18:34)
[2023-11-11] VITALS (7 sets, daily range): BP systolic 93–114; PULSE 70–118; RESP 15–18; TEMP 98–98.8; O2SAT 95–100
[2023-11-11 09:02] LABS: BASOPHILS % (AUTO) 0.8 % (0.0-2.0); HEMATOCRIT 22.2 % (36-48); HEMOGLOBIN 7.3 g/dL (12.0-16.0); LYMPHOCYTES # (AUTO) 0.4 K/uL (1.0-5.5); MEAN CORPUSCULAR HEMOGLOBIN 30 pg (27-31); MEAN CORPUSCULAR HGB CONC 33 % (32-36); MEAN CORPUSCULAR VOLUME 91 fL (79.0-98.0); MONOCYTES # (AUTO) 0.3 K/uL (0.0-1.0); MONOCYTES % (AUTO) 10.9 % (1.7-9.3); NEUTROPHILS # (AUTO) 2.3 K/uL (1.8-7.7); NEUTROPHILS % (AUTO) 74.3 % (40.0-70.0); PLATELET COUNT (AUTO) 145 K/uL (130-430); RED BLOOD CELL COUNT(AUTO) 2.46 MIL/uL (4.2-6.2); RED CELL DISTRIBUTION WIDTH 15.2 % (9.0-15.0)
[2023-11-11 09:07] LABS: CALCIUM 7.9 mg/dL (8.4-11.0)
[2023-11-11 09:10] LABS: CREATININE 11.31 mg/dL (0.55-1.30); POTASSIUM 2.6 mmol/L (3.5-5.1)
[2023-11-11 09:22] LABS: WHITE BLOOD COUNT (AUTO) 3.1 K/uL (4.8-10.8)
[2023-11-11] MEDS ORDERED: POTASSIUM CHLORIDE 40 MEQ in NS 250 ML IV ONE (09:30)
[2023-11-11] MEDS ORDERED: POTASSIUM CHLORIDE IV SCH (09:45)
[2023-11-11] MEDS ORDERED: NACL 0.9% IV SCH (09:45)
[2023-11-11] MEDS: POTASSIUM CHLORIDE 60 MEQ in NS 500 ML IV ONE (13:00)
[2023-11-12 01:20] VITALS: RESP 18; TEMP 97.2; O2SAT 100
[2023-11-12 07:43] LABS: CALCIUM 8.1 mg/dL (8.4-11.0); POTASSIUM 3.2 mmol/L (3.5-5.1)
[2023-11-12 07:44] LABS: ALBUMIN 1.8 g/dL (3.4-4.8); TOTAL BILIRUBIN 0.3 mg/dL (0.0-1.0); TOTAL PROTEIN, SERUM 5.8 g/dL (6.4-8.3)
[2023-11-12 08:00] VITALS: BP_SYST 92; PULSE 100; RESP 16; TEMP 97.7
[2023-11-12 08:15] VITALS: O2SAT 100
[2023-11-12 08:15] LABS: BASOPHILS % (AUTO) 0.6 % (0.0-2.0); HEMOGLOBIN 7.2 g/dL (12.0-16.0); LYMPHOCYTES # (AUTO) 0.4 K/uL (1.0-5.5); LYMPHOCYTES % (AUTO) 15.4 % (20.5-51.5); MEAN CORPUSCULAR HEMOGLOBIN 30 pg (27-31); MEAN CORPUSCULAR HGB CONC 34 % (32-36); MEAN CORPUSCULAR VOLUME 89 fL (79.0-98.0); MONOCYTES # (AUTO) 0.4 K/uL (0.0-1.0); MONOCYTES % (AUTO) 12.5 % (1.7-9.3); NEUTROPHILS # (AUTO) 2.1 K/uL (1.8-7.7); PLATELET COUNT (AUTO) 161 K/uL (130-430); RED BLOOD CELL COUNT(AUTO) 2.42 MIL/uL (4.2-6.2); RED CELL DISTRIBUTION WIDTH 15.3 % (9.0-15.0); WHITE BLOOD COUNT (AUTO) 2.9 K/uL (4.8-10.8)
[2023-11-12 08:25] LABS: CREATININE 10.75 mg/dL (0.55-1.30)
[2023-11-12 08:56] LABS: HEMATOCRIT 21.6 % (36-48)
[2023-11-12 08:57] LABS: NEUTROPHILS % (AUTO) 71.5 % (40.0-70.0)
[2023-11-12] MEDS: POTASSIUM CHLORIDE 30 MEQ in NS 250 ML IV ONE (09:30)
[2023-11-12] MEDS: EPOETIN ALFA-EPBX 4,000 UNITS/ML VIAL SUBCUT SCH (09:50)
[2023-11-12] MEDS ORDERED: OSEL30CA2 PO (12:10)
[2023-11-12] MEDS ORDERED: ACET325T PO (12:10)
[2023-11-12] MEDS ORDERED: LACO100T2 PO (12:10)
[2023-11-12] MEDS ORDERED: LEVO25TA2 PO (12:10)
[2023-11-12] MEDS ORDERED: ONDA-8 TL (12:11)
[2023-11-12 12:31] VITALS: BP_SYST 97; PULSE 106; RESP 16; TEMP 98.3; O2SAT 92
[2023-11-12 15:14] VITALS: BP_SYST 93; BP_SYST 97; PULSE 106; PULSE 98; RESP 16; RESP 17; TEMP 98.2; TEMP 98.3
[2023-11-12 16:13] VITALS: BP_SYST 93; PULSE 98; RESP 17; TEMP 98.2; O2SAT 92
== END 2023-11-12 17:30 | disposition home or self-care (01) | DRG 720 ==
LOC: SED 04:51 → STU 07:39 → SMU 11-09 14:54
PROVIDERS: ADMIT Internal Medicine; ATTEND Internal Medicine
PROC: 4A00X4Z Measurement of Central Nervous Electrical Activity, External Approach (ICD-10-PCS; principal; 2023-11-08)
PROC: 3E1M39Z Irrigation of Peritoneal Cavity using Dialysate, Percutaneous Approach (ICD-10-PCS; 2023-11-08)
PROC: 3E1M39Z Irrigation of Peritoneal Cavity using Dialysate, Percutaneous Approach (ICD-10-PCS; 2023-11-09)
PROC: 3E1M39Z Irrigation of Peritoneal Cavity using Dialysate, Percutaneous Approach (ICD-10-PCS; 2023-11-10)
PROC: 3E1M39Z Irrigation of Peritoneal Cavity using Dialysate, Percutaneous Approach (ICD-10-PCS; 2023-11-11)
DX: A41.9 Sepsis, unspecified organism (principal); D61.818 Other pancytopenia; E87.20 Acidosis, unspecified; I24.89 Other forms of acute ischemic heart disease; E44.0 Moderate protein-calorie malnutrition; E87.1 Hypo-osmolality and hyponatremia; N18.6 End stage renal disease; D62 Acute posthemorrhagic anemia; I42.9 Cardiomyopathy, unspecified; M32.14 Glomerular disease in systemic lupus erythematosus; J10.1 Influenza due to other identified influenza virus with other respiratory manifestations; G40.909 Epilepsy, unspecified, not intractable, without status epilepticus; Z20.822 Contact with and (suspected) exposure to COVID-19; R74.01 Elevation of levels of liver transaminase levels; E86.0 Dehydration; N92.0 Excessive and frequent menstruation with regular cycle; E87.6 Hypokalemia; Z86.73 Personal history of transient ischemic attack (TIA), and cerebral infarction without residual deficits; Z99.2 Dependence on renal dialysis; Z68.1 Body mass index [BMI] 19.9 or less, adult
CPT/HCPCS: 36415; 70450-TC; 71045; 76700; 80048; 80053; 80076; 83605; 83690; 83735; 84132; 84484; 84702; 85007; 85025; 85027; 85610; 87040; 87045-TC; 87046; 87081; 89055; 93005; 93306; 94070; 94760; 95816; 99285; G0378; G9035; J0696; J2270; J2405; J2543; J2916; J3480; J7030; J7040; J7050; J7060; J7512; Q5106